=== PATIENT | female | born 1960 | race Caucasian/White ===

== ENCOUNTER 2021-03-04 13:38 | Emergency (ER) | payer BC ==
--- NOTE | 2021-03-04 14:21 | EDM.PDOC ---
ED HPI GENERAL MEDICAL PROBLEM - General Chief Complaint: Eye Problems Stated Complaint: OBJECT IN EYE Time Seen by Provider: 03/04/21 14:00 Source of Information: Reports: Patient History Limitations: Reports: No Limitations - History of Present Illness INITIAL COMMENTS - FREE TEXT/NARRATIVE: Patient presents to the emergency department with symptoms of a foreign body sensation in her left eye on awakening approximately 4:30 AM today. States symptoms did not improve this morning while on a road trip during vacation and she arrives for ED evaluation. Patient states no recent welding or metal grinding work, she was golfing yesterday. Patient denies fever, chills, visual changes. Onset: Today - Related Data Home Meds: Home Meds Erythromycin Base [Erythromycin 0.5% Ophth Oint] 1 applic OP QID 5 Days #1 gm 03/04/21 [Rx] Past Medical History - Past Health History Medical/Surgical History: Denies Medical/Surgical History HEENT History: Reports: None - Infectious Disease History Infectious Disease History: Reports: None ED ROS GENERAL - Review of Systems Review Of Systems: Comprehensive ROS is negative, except as noted in HPI. ED EXAM GENERAL W FULL EYE - Physical Exam Exam: See Below Exam Limited By: No Limitations General Appearance: Alert, WD/WN, No Apparent Distress Eye Exam: Left Eye: Corneal Abrasion (Midline beginning just lateral of the pupil approximately 3 o'clock position), Foreign Body (Removed with cotton- tipped applicator), Bilateral Eye: EOMI, PERRL Eyelids: Left: Foreign Body, Lid Everted for Exam, Bilateral: Normal Appearance Conjunctiva & Sclera: Bilateral: Normal Appearance Cornea Exam: Left: Corneal Abrasion, Examined with Flourescein Extraocular Movements: Bilateral: Intact Pupils: Normal Accommodation Pupillary Size: Bilateral: 5 mm Pupillary Reaction: Bilateral: Brisk Respiratory/Chest: No Respiratory Distress, No Accessory Muscle Use Cardiovascular: Normal Peripheral Pulses, No Edema ED EYE w/ Add Procedure - Eye Procedure Alcaine Drops Administered: Yes (Tetracaine) Eye FB Removal: Removal w/ Cotton Swab Progress: Patient tolerated procedure well Departure - Departure Time of Disposition: 14:16 Disposition: Home, Self-Care 01 Condition: Good Clinical Impression: Foreign body in eye Qualifiers: Encounter type: initial encounter Laterality: left Qualified Code(s): T15.92XA - Foreign body on external eye, part unspecified, left eye, initial encounter Corneal abrasion, left Qualifiers: Encounter type: initial encounter Qualified Code(s): S05.02XA - Injury of conjunctiva and corneal abrasion without foreign body, left eye, initial encounter - Discharge Information *PRESCRIPTION DRUG MONITORING PROGRAM REVIEWED*: Not Applicable *COPY OF PRESCRIPTION DRUG MONITORING REPORT IN PATIENT [place]: Not Applicable Referrals: PCP,None [Primary Care Provider] - Additional Instructions: removal of foreign body of your left eye noted a small abrasion to the cornea: take antibiotic eye ointment for this apply as discussed 4-6 times per day for the next 5 days eye irritation should improve over the next 12 hours (the eye heals quite fast) if symptoms persist or worsen, follow up with an eye doctor JAMIE have a happy remaining vacation! - Problem List & Annotations (1) Corneal abrasion, left SNOMED Code(s): 25039678381899654 Code(s): S05.02XA - INJ CONJUNCTIVA AND CORNEAL ABRASION W/O FB, LEFT EYE, INIT Status: Acute Current Visit: Yes Qualifiers: Encounter type: initial encounter Qualified Code(s): S05.02XA - Injury of conjunctiva and corneal abrasion without foreign body, left eye, initial encounter (2) Foreign body in eye SNOMED Code(s): 663284484, 804603014 Code(s): T15.90XA - FOREIGN BODY ON EXTERNAL EYE, PART UNSP, UNSP EYE, INIT Status: Acute Current Visit: Yes Qualifiers: Encounter type: initial encounter Laterality: left Qualified Code(s): T 15.92XA - Foreign body on external eye, part unspecified, left eye, initial encounter - Problem List Review Problem List Initiated/Reviewed/Updated: Yes - Assessment/Plan Assessment:: corneal abrasion and foreign body of left eye plan: removal of foreign body found in upper eyelid emycin eye ointment for prevention of infection return precautions and follow up recommendations discussed
[2021-03-04] MEDS ORDERED: Tetracaine HCl/PF 0.5% 4 ML Bottle EYELF ONE (14:32)
[2021-03-04] MEDS ORDERED: Fluorescein 1 MG Ophth Strip EYELF ONE (14:32)
== END 2021-03-04 14:21 | disposition home or self-care (01) ==
LOC: LB.ED 13:38
DX: S05.02XA Injury of conjunctiva and corneal abrasion without foreign body, left eye, initial encounter (principal); W18.40XA Slipping, tripping and stumbling without falling, unspecified, initial encounter
CPT/HCPCS: 65220; 99283-25